=== PATIENT | male | born 1950 | race Caucasian/White ===

== ENCOUNTER → 2019-06-04 10:35 | Outpatient (BNVA) | payer MEDICARE, OTHER, SELFPAY | PROVIDERS: Family Provider Family Medicine; PCP Family Medicine; Visit Provider Otolaryngology | DX: C32.9 Malignant neoplasm of larynx, unspecified (principal); H65.03 Acute serous otitis media, bilateral | CPT/HCPCS: 99205; 99214 ==

== ENCOUNTER 2019-07-19 09:36 | Inpatient (IN) | payer MEDICARE, OTHER, SELFPAY ==
[2019-07-19] VITALS (8 sets, daily range): BP systolic 109–162; BP diastolic 68–98; PULSE 70–104; RESP 16–19; TEMP 36.8–37.1; O2SAT 89–98; BMI 21.2
--- NOTE | 2019-07-19 09:50 | ED_ITS ---
Documented by User: TYE Cohen 07/19/19 13:08 HPI - SOB/Dyspnea General: Chief Complaint: Upper Respiratory Infection Stated Complaint: SOB Time Seen by Provider: 07/19/19 09:48 Source: patient and family () Mode of arrival: ambulatory Limitations: language barrier (pt is non-verbal given hx of laryngeal resection ) History of Present Illness: HPI Narrative: Patient is a 69-year-old male who presents to ED today along with his who provides all of patient's history here for complaints of increased mucus production through his post laryngectomy stoma, shortness of breath, decreased appetite, and a 5 pound weight loss over the past two weeks. They were initially seen by Dr. Layton (PCP is [place] but he is out of office) and referred here for evaluation. They saw Yash recently and was placed on Levaquin-has one more dose of this left but states he is not improving. Patient states he feels short of breath with a mild pain in the left side of his chest with radiation into his left back. states he has trouble coughing up the mucus. Patient is only able to tolerate 3 ensures daily for nutrition. She states normally he would be able to consume a fairly normal diet. He has not been running fevers. No recent travel. states she did have a mild cough with no other symptoms recently. Patient has no other medical conditions apart from the laryngeal cancer. Associated symptoms: Reports chest congestion and chest pain; Deny abdominal pain, fever(s), hemoptysis, lightheadedness, nausea, orthopnea, palpitations, syncope or vomiting Review of Systems General: Reports: 10 or more systems reviewed and unremarkable except in HPI and below Const: Reports: change in appetite and change in weight; Denies: fever, chills, body aches, fatigue or malaise Eyes: Denies: change in vision, blurry vision, photophobia, floaters or seeing flashes ENMT: Denies: throat pain, uvular edema, painful swallowing, nasal discharge, nasal congestion or facial/sinus pain Card: Reports: chest pain and shortness of breath on exertion; Denies: palpitations, irregular heart rhythm, edema, lightheadedness, syncope, pre-syncope or shortness of breath when lying down Resp: Reports: shortness of breath, productive cough and chest congestion; Denies: coughing up blood GI: Denies: abdominal pain, nausea, vomiting, diarrhea, change in stool character, blood in stool, black tarry stool, white/light colored stool or fatty stool : Denies: flank pain, difficulty urinating, painful urination, urinary frequency, urinary urgency or urinary hesitancy Musc: Reports: back pain; Denies: neck pain Skin/Breast: Denies: rash Neuro: Denies: headache, numbness in extremities, weakness in extremities or changes in sensation PFSH ED PFSH: Medical History (Updated 07/19/19 @ 14:16 by Jean Peres MD) Acute serous otitis media Laryngeal cancer Surgical History (Updated 07/19/19 @ 14:09 by Jean Peres MD) History of laryngectomy Family History Other CAD (coronary artery disease) Social History (Updated 07/19/19 @ 14:09 by Jean Peres MD) Smoking and tobacco status: never smoked Alcohol intake: former Substance/Drug Use: never Physical Exam Const: COMMON NORMALS: no apparent distress, average body habitus, oriented x3, no limitations, healthy appearing, alert and well nourished HENMT: COMMON NORMALS: normocephalic, head/scalp atraumatic, hearing grossly normal bilaterally, external ears normal, EAC's normal, TM's normal bilaterally, external nose normal, nasal mucous membranes and turbinates normal, moist oral mucous membranes, oropharynx normal and gingiva normal HEAD & SCALP: normal to inspection, normocephalic and atraumatic NOSE: external nose normal and nasal mucous membranes and turbinates normal EXTERNAL EAR: Yes external ears normal EXTERNAL AUDITORY CANAL: EAC's normal TYMPANIC MEMBRANE: TM's normal bilaterally THROAT: no uvular edema Eye: COMMON NORMALS: PERRL, EOMs intact bilaterally and conjunctivae normal CONJUNCTIVA: Yes conjunctivae normal PUPIL: Yes PERRL Neck/C-Spine: OTHER: post laryngectomy stoma; has some mild erythema to infer ior portion-thick yellow phlegm coughed up from this Lymph: LYMPHATIC: no lymphadenopathy noted Resp: COMMON NORMALS: normal respiratory effort AUSCULTATION: crackles (LLL) Cardio: COMMON NORMALS: regular rhythm RATE: tachycardic RHYTHM: regular rhythm GI: COMMON NORMALS: normal to inspection, nondistended, normoactive bowel sounds, soft to palpation, non-tender, no hepatosplenomegaly and no masses PALPATION: Yes soft and Yes no hepatosplenomegaly : COMMON NORMALS: Yes no CVA tenderness BLADDER/KIDNEY EXAM: Yes no CVA tenderness Back/Pelvis: COMMON NORMALS: no CVA tenderness OTHER: reports mild TTP throughout L side of back; no midline tenderness Extremity: COMMON NORMALS: normal to inspection Neuro: COMMON NORMALS: oriented x3 SENSORIUM/ORIENTATION: Yes alert Skin: COMMON NORMALS: no rashes or lesions noted GENERAL SKIN EXAM: no rashes or lesions noted Course Vital Signs: Vital signs: Vital Signs Temperature 98.8 F 07/19/19 16:00 Pulse Rate 76 07/19/19 16:00 Respiratory Rate 18 07/19/19 16:00 Blood Pressure 126/82 07/19/19 16:00 Pulse Oximetry 95 07/19/19 16:00 MDM - SOB/Dyspnea MDM Narrative: Medical decision making narrative: Dr. Kerns will also evaluate and speak to hospitalist. He requested dose of Zosyn. Will go ahead and place pt on COVID-19 precautions and test based on CXR apperance. Lab Data: Labs: Lab Results 07/19/19 07/19/19 07/19/19 Range/Units 10:20 10:20 10:20 WBC 10.8 H (4.0-10.0) 10^3/ uL RBC 4.46 (4.1-5.3) 10^6/u L Hgb 12.0 (11.7-16.6) g/dL Hct 41.4 L (42.0-52.0) % MCV 92.8 (80-94) fL MCH 26.9 L (28.0-34.0) pg MCHC 29.0 L (30.0-36.0) g/dL RDW 15.8 H (12.1-15.1) % Plt Count 309 (130-400) 10^3/c mm MPV 9.3 (7.4-10.4) fL Neut % (Auto) 81.7 % Lymph % (Auto) 10.0 % [place] % (Auto) 5.7 % Eos % (Auto) 1.7 % Baso % (Auto) 0.2 % Neut # (Auto) 8.8 H (1.8-7.7) 10^3/u L Lymph # (Auto) 1.1 (0.8-4.8) 10^3/u L [place] # (Auto) 0.6 (0.2-0.9) 10^3/u L Eos # (Auto) 0.2 (0.0-0.8) 10^3/u L Baso # (Auto) 0.0 (0.0-0.1) 10^3/u L Nucleated RBC % (a uto) 0 % Nucleated RBCs # 0.0 /100WBC Sodium 138 (136-145) mmol/L Potassium 3.9 (3.5-5.1) mmol/L Chloride 99 (98-107) mmol/L Carbon Dioxide 23 (22-29) mmol/L Anion Gap 19.9 H (5-19) BUN 10 (8-23) mg/dL Creatinine 1.0 (0.7-1.2) mg/dL GFR Calculation 74.1 L (90-130) mL/min Glucose 111 (65-115) mg/dL Calculated Osmolal ity 283 L (285-295) mOsm/k g Lactate 2.4 H (0.5-2.2) mmol/L Calcium 10.5 (8.5-10.5) mg/dL Total Bilirubin 0.3 (0.15-1.2) mg/dL AST 17 (0-40) U/L ALT 9 (0-41) U/L Alkaline Phosphata se 125 (40-130) IU/L Total Protein 7.6 (6.6-8.7) g/dL Albumin 3.7 (3.5-5.2) g/dL Globulin 3.9 (1.3-4.6) g/dL Urine Color (Yellow) Urine Appearance (CLEAR) Urine pH (5-7) Ur Specific Gravit y (1.005-1.030) Urine Protein (Negative) Urine Glucose (UA) (Normal) Urine Ketones (Negative) Urine Blood (Negative) Urine Nitrate (Negative) Urine Bilirubin (NEGATIVE) Urine Urobilinogen (Negative) mg/dL Ur Leukocyte Caroline ase (Negative) Urine RBC (0-2) /hpf Urine WBC (0-5) /hpf Ur Squamous Epith Cells (0-5) Amorphous Sediment Urine Bacteria (NONE) Coarse Granular Ca sts /lpf 07/19/19 Range/Units 12:01 WBC (4.0-10.0) 10^3/ uL RBC (4.1-5.3) 10^6/u L Hgb (11.7-16.6) g/dL Hct (42.0-52.0) % MCV (80-94) fL MCH (28.0-34.0) pg MCHC (30.0-36.0) g/dL RDW (12.1-15.1) % Plt Count (130-400) 10^3/c mm MPV (7.4-10.4) fL Neut % (Auto) % Lymph % (Auto) % [place] % (Auto) % Eos % (Auto) % Baso % (Auto) % Neut # (Auto) (1.8-7.7) 10^3/u L Lymph # (Auto) (0.8-4.8) 10^3/u L [place] # (Auto) (0.2-0.9) 10^3/u L Eos # (Auto) (0.0-0.8) 10^3/u L Baso # (Auto) (0.0-0.1) 10^3/u L Nucleated RBC % (a uto) % Nucleated RBCs # /100WBC Sodium (136-145) mmol/L Potassium (3.5-5.1) mmol/L Chloride (98-107) mmol/L Carbon Dioxide (22-29) mmol/L Anion Gap (5-19) BUN (8-23) mg/dL Creatinine (0.7-1.2) mg/dL GFR Calculation (90-130) mL/min Glucose (65-115) mg/dL Calculated Osmolal ity (285-295) mOsm/k g Lactate (0.5-2.2) mmol/L Calcium (8.5-10.5) mg/dL Total Bilirubin (0.15-1.2) mg/dL AST (0-40) U/L ALT (0-41) U/L Alkaline Phosphata se (40-130) IU/L Total Protein (6.6-8.7) g/dL Albumin (3.5-5.2) g/dL Globulin (1.3-4.6) g/dL Urine Color Yellow (Yellow) Urine Appearance Cloudy (CLEAR) Urine pH 7 (5-7) Ur Specific Gravit y 1.010 (1.005-1.030) Urine Protein Neg (Negative) Urine Glucose (UA) Norm (Normal) Urine Ketones Negative (Negative) Urine Blood Neg (Negative) Urine Nitrate Negative (Negative) Urine Bilirubin Neg (NEGATIVE) Urine Urobilinogen Norm (Negative) mg/dL Ur Leukocyte Caroline ase Negative (Negative) Urine RBC Rare (0-2) /hpf Urine WBC 0-4 H (0-5) /hpf Ur Squamous Epith Cells 0-4 H (0-5) Amorphous Sediment 2+ Urine Bacteria Trace (NONE) Coarse Granular Ca sts 5-10 H /lpf Imaging Data^: CXR: Radiologist's impression: [place] [address] XRay Report Signed Patient: Justin Crenshaw Unit #: [id number] : [id number] Age/Sex: 69 / M ADM Date: 07/19/19 Loc: ER Room/Bed: Attending Dr: Ordering Provider/Ordering MD: Yu Hightower Date of Service: 07/19/19 Procedure(s): XR chest 1V portable [id number] Accession Number(s): [id number] Report Number: [id number] WS: [id number] PORTABLE CHEST HISTORY: cough/congestion COMPARISON: 08/07/2018 New interstitial opacification at the lung apices, LEFT greater than RIGHT. Additional interstitial thickening in the central LEFT lung. No pleural effusion or pneumothorax. Cardiac size: Normal. Mediastinum/Aorta: Normal mediastinum. No osseous abnormality seen. XR/XR chest 1V portable [id number] IMPRESSION: New, multilobar interstitial opacifications. Likely pneumonia. Dictated By: Ella Dave DO Signed By: Ella Dave DO Signed Date/Time: 07/19/19 1116 DD/ 1115 Discharge Plan Discharge Patient Disposition: Admitted As Inpatient Admit Provider: Jean Peres Clinical Impression: Pneumonia Qualifiers: Pneumonia type: due to unspecified organism Laterality: bilateral Lung location: unspecified part of lung Qualified Code(s): J18.9 - Pneumonia, unspecified organism Condition: Stable Referrals: Henry Balderas MD [Primary Care Provider] - Discharge Date/Time: 07/19/19 15:50 Sign Out Sign Out Data: Patient Sign Out occurred on 07/19/19 at 11:47. Patient's care was discussed, and care was transferred from to Maggy Kerns. Coding Level of Care Code ED Anesthesiologists' Assistant for Chg Fwd Exam Comprehensive Documented by User: Maggy Kerns 07/19/19 17:17 HPI - SOB/Dyspnea General: Chief Complaint: Upper Respiratory Infection Stated Complaint: SOB Time Seen by Provider: 07/19/19 09:48 PFSH ED PFSH: Medical History (Updated 07/19/19 @ 14:16 by Jean Peres MD) Acute serous otitis media Laryngeal cancer Surgical History (Updated 07/19/19 @ 14:09 by Jean Peres MD) History of laryngectomy Family History Other CAD (coronary artery disease) Social History (Updated 07/19/19 @ 14:09 by Jean Peres MD) Smoking and tobacco status: never smoked Alcohol intake: former Substance/Drug Use: never Course Vital Signs: Vital signs: Vital Signs Temperature 98.8 F 07/19/19 16:00 Pulse Rate 76 07/19/19 16:00 Respiratory Rate 18 07/19/19 16:00 Blood Pressure 126/82 07/19/19 16:00 Pulse Oximetry 95 07/19/19 16:00 MDM - SOB/Dyspnea MDM Narrative: Medical decision making narrative: Care assumed by me, Dr. Kerns from TYE Cohen. Please see her note and her assessment as I agree with her history and physical exam and assessment. I reviewed the case in full with Dr. Peres, he is agreeable to admission. Currently the patient is in no distress. He is hypoxic with a failed outpatient treatment of pneumonia. COVID-19 testing is pending. Patient be placed on appropriate precautions. Lab Data: Labs: Lab Results 07/19/19 07/19/19 07/19/19 Range/Units 10:20 10:20 10:20 WBC 10.8 H (4.0-10.0) 10^3/ uL RBC 4.46 (4.1-5.3) 10^6/u L Hgb 12.0 (11.7-16.6) g/dL Hct 41.4 L (42.0-52.0) % MCV 92.8 (80-94) fL MCH 26.9 L (28.0-34.0) pg MCHC 29.0 L (30.0-36.0) g/dL RDW 15.8 H (12.1-15.1) % Plt Count 309 (130-400) 10^3/c mm MPV 9.3 (7.4-10.4) fL Neut % (Auto) 81.7 % Lymph % (Auto) 10.0 % [place] % (Auto) 5.7 % Eos % (Auto) 1.7 % Baso % (Auto) 0.2 % Neut # (Auto) 8.8 H (1.8-7.7) 10^3/u L Lymph # (Auto) 1.1 (0.8-4.8) 10^3/u L [place] # (Auto) 0.6 (0.2-0.9) 10^3/u L Eos # (Auto) 0.2 (0.0-0.8) 10^3/u L Baso # (Auto) 0.0 (0.0-0.1) 10^3/u L Nucleated RBC % (a uto) 0 % Nucleated RBCs # 0.0 /100WBC Sodium 138 (136-145) mmol/L Potassium 3.9 (3.5-5.1) mmol/L Chloride 99 (98-107) mmol/L Carbon Dioxide 23 (22-29) mmol/L Anion Gap 19.9 H (5-19) BUN 10 (8-23) mg/dL Creatinine 1.0 (0.7-1.2) mg/dL GFR Calculation 74.1 L (90-130) mL/min Glucose 111 (65-115) mg/dL Calculated Osmolal ity 283 L (285-295) mOsm/k g Lactate 2.4 H (0.5-2.2) mmol/L Calcium 10.5 (8.5-10.5) mg/dL Total Bilirubin 0.3 (0.15-1.2) mg/dL AST 17 (0-40) U/L ALT 9 (0-41) U/L Alkaline Phosphata se 125 (40-130) IU/L Total Protein 7.6 (6.6-8.7) g/dL Albumin 3.7 (3.5-5.2) g/dL Globulin 3.9 (1.3-4.6) g/dL Urine Color (Yellow) Urine Appearance (CLEAR) Urine pH (5-7) Ur Specific Gravit y (1.005-1.030) Urine Protein (Negative) Urine Glucose (UA) (Normal) Urine Ketones (Negative) Urine Blood (Negative) Urine Nitrate (Negative) Urine Bilirubin (NEGATIVE) Urine Urobilinogen (Negative) mg/dL Ur Leukocyte Caroline ase (Negative) Urine RBC (0-2) /hpf Urine WBC (0-5) /hpf Ur Squamous Epith Cells (0-5) Amorphous Sediment Urine Bacteria (NONE) Coarse Granular Ca sts /lpf 07/19/19 Range/Units 12:01 WBC (4.0-10.0) 10^3/ uL RBC (4.1-5.3) 10^6/u L Hgb (11.7-16.6) g/dL Hct (42.0-52.0) % MCV (80-94) fL MCH (28.0-34.0) pg MCHC (30.0-36.0) g/dL RDW (12.1-15.1) % Plt Count (130-400) 10^3/c mm MPV (7.4-10.4) fL Neut % (Auto) % Lymph % (Auto) % [place] % (Auto) % Eos % (Auto) % Baso % (Auto) % Neut # (Auto) (1.8-7.7) 10^3/u L Lymph # (Auto) (0.8-4.8) 10^3/u L [place] # (Auto) (0.2-0.9) 10^3/u L Eos # (Auto) (0.0-0.8) 10^3/u L Baso # (Auto) (0.0-0.1) 10^3/u L Nucleated RBC % (a uto) % Nucleated RBCs # /100WBC Sodium (136-145) mmol/L Potassium (3.5-5.1) mmol/L Chloride (98-107) mmol/L Carbon Dioxide (22-29) mmol/L Anion Gap (5-19) BUN (8-23) mg/dL Creatinine (0.7-1.2) mg/dL GFR Calculation (90-130) mL/min Glucose (65-115) mg/dL Calculated Osmolal ity (285-295) mOsm/k g Lactate (0.5-2.2) mmol/L Calcium (8.5-10.5) mg/dL Total Bilirubin (0.15-1.2) mg/dL AST (0-40) U/L ALT (0-41) U/L Alkaline Phosphata se (40-130) IU/L Total Protein (6.6-8.7) g/dL Albumin (3.5-5.2) g/dL Globulin (1.3-4.6) g/dL Urine Color Yellow (Yellow) Urine Appearance Cloudy (CLEAR) Urine pH 7 (5-7) Ur Specific Gravit y 1.010 (1.005-1.030) Urine Protein Neg (Negative) Urine Glucose (UA) Norm (Normal) Urine Ketones Negative (Negative) Urine Blood Neg (Negative) Urine Nitrate Negative (Negative) Urine Bilirubin Neg (NEGATIVE) Urine Urobilinogen Norm (Negative) mg/dL Ur Leukocyte Caroline ase Negative (Negative) Urine RBC Rare (0-2) /hpf Urine WBC 0-4 H (0-5) /hpf Ur Squamous Epith Cells 0-4 H (0-5) Amorphous Sediment 2+ Urine Bacteria Trace (NONE) Coarse Granular Ca sts 5-10 H /lpf Discharge Plan Discharge Patient Disposition: Admitted As Inpatient Admit Provider: Jean Peres Clinical Impression: Pneumonia Qualifiers: Pneumonia type: due to unspecified organism Laterality: bilateral Lung location: unspecified part of lung Qualified Code(s): J18.9 - Pneumonia, unspecified organism Condition: Stable Referrals: Henry Balderas MD [Primary Care Provider] - Discharge Date/Time: 07/19/19 15:50 Sign Out Sign Out Data: Patient Sign Out occurred on 07/19/19 at 11:47. Patient's care was discussed, and care was transferred from to Maggy Kerns. Coding Level of Care Code ED Anesthesiologists' Assistant for Chg Fwd Exam Comprehensive
--- NOTE | 2019-07-19 10:04 | ECG_ITS ---
Measurements Intervals [place] Rate: 106 P: 77 MD: 149 QRS: 54 QRSD: 82 T: 72 QT: 325 QTc: 432 SINUS TACHYCARDIA No previous ECG available for comparison Electronically Signed On 07-19-2019 18:06:25 CDT by Shabana Vigil M.D. [email or web address]
--- NOTE | 2019-07-19 10:04 | XR_ITS ---
WS: [id number] PORTABLE CHEST HISTORY: cough/congestion COMPARISON: 08/07/2018 New interstitial opacification at the lung apices, LEFT greater than RIGHT. Additional interstitial t hickening in the central LEFT lung. No pleural effusion or pneumothorax. Cardiac size: Normal. Mediastinum/Aorta: Normal mediastinum. No osseous abnormality seen. XR/XR chest 1V portable [id number] IMPRESSION: New, multilobar interstitial opacifications. Likely pneumonia.
[2019-07-19 10:29] LABS: Basophils % 0.2 %; Eosinophils # 0.2 10^3/uL (0.0-0.8); Eosinophils % 1.7 %; Hematocrit 41.4 % (42.0-52.0); Lymphocytes # 1.1 10^3/uL (0.8-4.8); Mean Corpuscular Hemoglobin 26.9 pg (28.0-34.0); Mean Corpuscular Volume 92.8 fL (80-94); Mean Platelet Volume 9.3 fL (7.4-10.4); Monocytes # 0.6 10^3/uL (0.2-0.9); Monocytes % 5.7 %; Neutrophils # 8.8 10^3/uL (1.8-7.7); Neutrophils % 81.7 %; Nucleated Red Blood Cells % 0 %; Platelet Count 309 10^3/cmm (130-400); Red Blood Count 4.46 10^6/uL (4.1-5.3); Red Cell Distribution Width 15.8 % (12.1-15.1); White Blood Count 10.8 10^3/uL (4.0-10.0)
[2019-07-19 10:48] LABS: Lactate (Lactic Acid level) 2.4 mmol/L (0.5-2.2)
[2019-07-19 10:49] LABS: Alanine Aminotransferase 9 U/L (0-41); Albumin Level 3.7 g/dL (3.5-5.2); Alkaline Phosphatase 125 IU/L (40-130); Anion Gap 19.9 (5-19); Aspartate Amino Transferase 17 U/L (0-40); Blood Urea Nitrogen 10 mg/dL (8-23); Calcium 10.5 mg/dL (8.5-10.5); Carbon Dioxide 23 mmol/L (22-29); Chloride 99 mmol/L (98-107); Globulin 3.9 g/dL (1.3-4.6); Glomerular Filtration Rate 74.1 mL/min (90-130); Glucose 111 mg/dL (65-115); Osmolality Calculated 283 mOsm/kg (285-295); Potassium 3.9 mmol/L (3.5-5.1); Sodium 138 mmol/L (136-145); Total Bilirubin 0.3 mg/dL (0.15-1.2); Total Protein 7.6 g/dL (6.6-8.7)
[2019-07-19] MEDS: sodium chloride 0.9% 1,000 ML 999 ML IV (12:14)
[2019-07-19] MEDS: piperacillin-tazobactam 3.375 GM in sodium chloride 0.9% (plus) 50 ML IV ×2 (12:14→20:59)
[2019-07-19 12:38] LABS: Bilirubin Urine Neg (NEGATIVE); Blood Urine Neg (Negative); Glucose Urine UA Norm (Normal); Ketones Urine Negative (Negative); Leukocyte Esterase Urine Negative (Negative); Nitrate Urine Negative (Negative); Protein Urine Neg (Negative); Urine Appearance Cloudy (CLEAR); Urine Color Yellow (Yellow); Urobilinogen Urine Norm (Negative); pH Urine 7 (5-7)
[2019-07-19 12:39] LABS: Add Urine Microscopic? YES
[2019-07-19 12:47] LABS: RBC Urine RARE /hpf (0-2); Squamous Epithelial Cell Urine 0-4 (0-5); WBC Urine 0-4 /hpf (0-5)
[2019-07-19 12:49] LABS: Add Urine Culture? No; Amorphous Sediment Urine 2+; Bacteria Urine TRACE
--- NOTE | 2019-07-19 12:59 | PC.NURSE ---
hospitalist in room with pt and pt's spouse at this time (shira)
--- NOTE | 2019-07-19 13:33 | PM.HP ---
Providers/Chief Complaint Primary Care Provider: Henry Balderas MD Chief Complaint: SOB History of Present Illness Justin Crenshaw is a 69 year old male who presents with at least 2 weeks of illness. He has been coughing up some greenish sputum. is concerned his vocal cord prosthesis inserted between his cervical area is perhaps leaking. She reports this is due to be changed and is associated with aspiration with feeding when it does leak. She reports she has noticed that he is coughed some with drinking. There have been no fevers at home. He has had some shortness of breath. He has had decreased p.o. intake and lost 5 pounds in the last several weeks. He reports he is coughed so hard on some occasions that his chest hurt. No vomiting or diarrhea. Review of Systems General: Reports: 10 or more systems reviewed and unremarkable except in HPI and below Const: Denies: fever or chills Eyes: Denies: change in vision ENMT: Denies: throat pain Card: Reports: chest pain (Some chest pain with coughing) Resp: Reports: shortness of breath and productive cough GI: Denies: abdominal pain : Denies: flank pain Musc: Denies: neck pain Skin/Breast: Denies: rash Neuro: Denies: headache Psych: Denies: anxiety or depression Endo: Denies: excessive urination Damian/Lymph: Denies: easy bruising All/Imm: Denies: hives Medications/Allergies Allergies Allergy/AdvReac Type Severity Reaction Status Date / Time tramadol Allergy anxious Verified 06/04/19 11:35 PFSH Acute PFSH: Medical History (Updated 07/19/19 @ 14:16 by Jean Peres MD) Acute serous otitis media Laryngeal cancer Surgical History (Updated 07/19/19 @ 14:09 by Jean Peres MD) History of laryngectomy Family History Other CAD (coronary artery disease) Social History (Updated 07/19/19 @ 14:09 by Jean Peres MD) Smoking and tobacco status: never smoked Alcohol intake: former Substance/Drug Use: never Vitals/I&O/Wt Last Vital Signs Pulse 73 07/19/19 12:40 Resp 18 07/19/19 09:49 BP 122/83 07/19/19 12:40 Pulse Ox 98 07/19/19 12:40 Weight last 48 hrs Weight 61.689 kg Physical Exam Narrative: EXAM NARRATIVE: General exam is a nonverbal white male, clearly involved in history process and his clearly knows how to read lips. shows me some yellowish stringy sputum as a walk-in. HEENT: Pupils equally round. Oropharynx is clear. Neck demonstrates what appears to be a laryngo-stome with a tracheoesophageal puncture. He was receiving a nebulized treatment through this as I walk in the room. Cardiovascular regular rate and rhythm without murmur Lungs are clear. No wheezing or crackles are heard. Abdomen is soft with positive bowel sounds. No obvious organomegaly was deferred Extremities no cyanosis clubbing or edema, cap refill brisk Skin without rash Neuro no focal deficits Data : 07/19/19 10:20 07/19/19 10:20 Other Labs: Lactic acid level was 2.4 Urinalysis is essentially negative Influenza swabs are negative for a and B Covid 19 testing has been sent Chest x-ray per my read demonstrates some interstitial changes left upper lobe. Cardiac silhouette appears normal. EKG was also performed which demonstrates normal sinus rhythm, normal axis. He is slightly tachycardic at 106. There are no acute changes. Micro: Microbiology 07/19/19 11:03 Blood Culture - Preliminary Blood SPECIMEN COLLECTED 07/19/19 10:20 Blood Culture - Preliminary Blood SPECIMEN COLLECTED A&P Assessment and plan (1) Pneumonia: Patient requiring some oxygen in the emergency department. I believe they placed him on 3 L of oxygen through a trach shield. However, he has had some airway suctioning and this may have improved his condition significantly. He completed 9 days of Levaquin prior to coming to the hospital without improvement. Secondary to this, with visible infiltrate on x-ray will place him on vancomycin and Zosyn initially with plans on de-escalating this quickly. Sputum culture will be done. Nebs Hydration as he appears slightly dehydrated. Hopefully this will help with the viscosity of his secretions Secondary to his laryngeal stoma, tracheoesophageal puncture, pneumonia, previous ENT evaluation and concern for change of his laryngeal device ENT was consulted. Status: Acute Qualifiers: Laterality: bilateral Lung location: unspecified part of lung Pneumonia type: due to unspecified organism Qualified Code(s): J18.9 - Pneumonia, unspecified organism Code(s): J18.9 - Pneumonia, unspecified organism (2) Respiratory failure: Oxygen as needed. Taper off as possible. Status: Acute Code(s): J96.90 - Respiratory failure, unspecified, unspecified whether with hypoxia or hypercapnia Additional A&P Information History of laryngeal cancer DVT prophylaxis with Lovenox Full code Attestations Medical Necessity Statement*: Will need greater than 2 midnight stay for treatment of pneumonia with IV antibiotics. Time Spent in Patient Care: Greater than 35 minutes Coding Level of Care Code Acute Property Portfolio Officer for g Fwd Diagnoses Pneumonia J18.9 Laterality: bilateral Lung location: unspecified part of lung Pneumonia type: due to unspecified organism Respiratory failure J96.90
[2019-07-19 14:10] LABS: Influenza A by IFA Negative (Negative); Influenza B by IFA Negative (Negative)
[2019-07-19] MEDS: enoxaparin 40 mg/0.4 mL Syringe SUBCUT (18:50)
[2019-07-19] MEDS: vancomycin 1,000 MG in sodium chloride 0.9% 250 ML 250 MG IV (18:50)
[2019-07-19] MEDS: sodium chloride 0.9% 1,000 ML 75 ML IV (18:51)
[2019-07-20] VITALS (12 sets, daily range): BP systolic 103–124; BP diastolic 62–74; PULSE 68–77; RESP 17–24; TEMP 36.4–36.8; O2SAT 91–97
[2019-07-20] MEDS: piperacillin-tazobactam 3.375 GM in sodium chloride 0.9% (plus) 50 ML IV ×3 (03:42→21:56)
[2019-07-20 06:50] LABS: Basophils % 0.2 %; Eosinophils # 0.2 10^3/uL (0.0-0.8); Eosinophils % 2.7 %; Hematocrit 33.8 % (42.0-52.0); Hemoglobin 10.1 g/dL (11.7-16.6); Lymphocytes # 1.1 10^3/uL (0.8-4.8); Lymphocytes % 18.5 %; Mean Corpuscular HGB Conc 29.9 g/dL (30.0-36.0); Mean Corpuscular Hemoglobin 26.9 pg (28.0-34.0); Mean Corpuscular Volume 90.1 fL (80-94); Mean Platelet Volume 9.1 fL (7.4-10.4); Monocytes # 0.4 10^3/uL (0.2-0.9); Monocytes % 6.8 %; Neutrophils # 4.1 10^3/uL (1.8-7.7); Neutrophils % 70.4 %; Nucleated Red Blood Cells % 0 %; Platelet Count 263 10^3/cmm (130-400); Red Blood Count 3.75 10^6/uL (4.1-5.3); Red Cell Distribution Width 15.8 % (12.1-15.1); White Blood Count 5.9 10^3/uL (4.0-10.0)
[2019-07-20 07:08] LABS: Anion Gap 14.3 (5-19); Blood Urea Nitrogen 9 mg/dL (8-23); Calcium 9.7 mg/dL (8.5-10.5); Carbon Dioxide 25 mmol/L (22-29); Chloride 105 mmol/L (98-107); Glomerular Filtration Rate 74.1 mL/min (90-130); Glucose 101 mg/dL (65-115); Osmolality Calculated 286 mOsm/kg (285-295); Potassium 4.3 mmol/L (3.5-5.1); Sodium 140 mmol/L (136-145)
[2019-07-20] MEDS: sodium chloride 0.9% 1,000 ML 75 ML IV (09:02)
--- NOTE | 2019-07-20 10:21 | DCPLANNER ---
Per rounding; and km. are addressing the amount of 02 pt is using as he didn't use any before hospitalization.
[2019-07-20] MEDS: ipratropium-albuterol 3 mL Neb INHALATION ×3 (10:28→20:37)
--- NOTE | 2019-07-20 10:52 | P.PN_ITS ---
Subjective Subjective: Interval history: Justin reports he is doing okay. Not coughing up quite as much sputum. Medications: Reviewed: Yes Vitals/I&O/Wt Last Vital Signs Temp 97.8 F 07/20/19 07:45 Pulse 68 07/20/19 10:31 Resp 18 07/20/19 10:31 BP 120/68 07/20/19 07:45 Pulse Ox 95 07/20/19 10:31 07/19/19 07/20/19 07/20/19 22:59 06:59 14:59 Intake Total 450 / 450 50 / 500 1050 / 1050 Output Total 350 / 350 Balance 450 / 450 50 / 500 700 / 700 Weight last 48 hrs Weight 61.689 kg Physical Exam Narrative: EXAM NARRATIVE: General exam is no apparent distress Cardiovascular regular rate and rhythm without murmur Lungs demonstrate some bilateral fine crackles/wheezes Abdomen is soft with positive bowel sounds. No obvious organomegaly was deferred Extremities no cyanosis clubbing or edema, cap refill brisk Data : 07/20/19 06:41 07/20/19 06:41 Micro: Microbiology 07/19/19 10:20 Blood Culture - Preliminary Blood NEGATIVE TO DATE 07/19/19 10:05 Sputum Culture - Preliminary Sputum - Expectorated Sputum 07/19/19 11:03 Blood Culture - Preliminary Blood SPECIMEN COLLECTED A&P Assessment and plan (1) Pneumonia: Continue Zosyn and vancomycin Await sputum culture ENT consultation has been entered, regarding his laryngeal stoma and changing of his device there. Awaiting Covid 19 results so precautions still in place Wean oxygen as tolerated Secondary to wheezing I heard today nebulized treatments will be scheduled At 3 days of Zithromax for anti-inflammatory effect. He is already taken 9 days of Levaquin so doubt any atypical bacteria. At this point IV fluids can be discontinued Repeat chest x-ray tomorrow Status: Acute Qualifiers: Laterality: bilateral Lung location: unspecified part of lung Pneumonia type: due to unspecified organism Qualified Code(s): J18.9 - Pneumonia, unspecified organism Code(s): J18.9 - Pneumonia, unspecified organism (2) Respiratory failure: Oxygen as needed. Taper off as possible. 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
--- NOTE | 2019-07-20 11:01 | PM.CONSULT ---
Providers/Reason For Consult Consulting Physican/Specialty*: ENT Reason for Consult*: leaking TEP Attending Physician: Jean Peres MD Primary Care Provider: Henry Balderas MD History of Present Illness History of Present Illness Justin Crenshaw is a 69 year old male. He well-known to me. 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 He is also undergone a tracheoesophageal puncture for voice rehabilitation. I was asked to consult to determine if a leak may or may not be present and if his voice prosthesis may need to be changed. Review of Systems General: Reports: 10 or more systems reviewed and unremarkable except in HPI and below Const: Denies: fever or chills Eyes: Denies: change in vision ENMT: Denies: throat pain Card: Reports: chest pain (Some chest pain with coughing) Resp: Reports: shortness of breath and productive cough GI: Denies: abdominal pain : Denies: flank pain Musc: Denies: neck pain Skin/Breast: Denies: rash Neuro: Denies: headache Psych: Denies: anxiety or depression Endo: Denies: excessive urination Damian/Lymph: Denies: easy bruising All/Imm: Denies: hives Meds/Allergies Home Medications and Allergies Home Medications Medication Instructions Recorded Confirmed Type No Known Home Medications 06/04/19 07/19/19 History Allergies Allergy/AdvReac Type Severity Reaction Status Date / Time tramadol Allergy anxious Verified 06/04/19 11:35 Current Medications Current Medications Generic Name Dose Route Start Last Admin Trade Name Freq PRN Reason Stop Dose Admin Enoxaparin Sodium 40 mg 07/19/19 18:00 07/19/19 18:50 Lovenox SUBCUT 40 mg Q24H JOSE Administration Vancomycin HCl 1,000 mg/ 250 mls @ 250 mls/hr 07/19/19 19:00 07/19/19 21:18 Sodium Chloride IV Infused Q18H JOSE Infusion Protocol Piperacillin Sod/Tazobactam 50 mls @ 12.5 mls/hr 07/19/19 20:00 07/20/19 09:02 Sod 3.375 gm/ Sodium Chloride IV Infused Q8H JOSE Infusion Protocol PFSH Acute PFSH: Medical History Acute serous otitis media Laryngeal cancer Surgical History History of laryngectomy Family History Other CAD (coronary artery disease) Social History Smoking and tobacco status: never smoked Alcohol intake: former Substance/Drug Use: never Vitals/I&O/Wt Last Vital Signs Temp 97.8 F 07/20/19 07:45 Pulse 76 07/20/19 10:51 Resp 18 07/20/19 10:51 BP 120/68 07/20/19 07:45 Pulse Ox 91 07/20/19 10:51 07/19/19 07/20/19 07/20/19 22:59 06:59 14:59 Intake Total 450 / 450 50 / 500 1050 / 1050 Output Total 350 / 350 Balance 450 / 450 50 / 500 700 / 700 Weight last 48 hrs Weight 136 lb Physical Exam Narrative: EXAM NARRATIVE: Patient has normal postoperative changes from a total laryngectomy. He has a well-healed tracheal stoma with a tracheoesophageal puncture that is properly placed. A leak test was performed with the patient swallowed dyed liquid. No leak was noted. Data Micro: Micro: Microbiology 07/19/19 10:20 Blood Culture - Pr eliminary Blood NEGATIVE TO ALONSO E 07/19/19 10:05 Sputum Culture - P reliminary Sputum - Expector ated Sputum 07/19/19 11:03 Blood Culture - Pr eliminary Blood SPECIMEN [facility] A&P Assessment and plan (1) Laryngeal cancer: He is well-healed and there is no evidence of local regional disease. His tracheoesophageal puncture is in good order and not leaking at this time. I recommend follow-up once he is discharged from the hospital for a routine tracheoesophageal puncture prosthesis replacement. 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
[2019-07-20] MEDS: azithromycin 500 MG in sodium chloride 0.9% 250 ML 150 MG IV (11:11)
[2019-07-20] MEDS: vancomycin 1,000 MG in sodium chloride 0.9% 250 ML 150 MG IV (13:23)
[2019-07-20 14:12] LABS: Coronavirus Lab Test PTC SEE COMMENTS
[2019-07-20] MEDS: enoxaparin 40 mg/0.4 mL Syringe SUBCUT (18:14)
[2019-07-21] VITALS (8 sets, daily range): BP systolic 109–118; BP diastolic 65–82; PULSE 66–79; RESP 16–22; TEMP 36.6–37.1; O2SAT 92–97
[2019-07-21] MEDS: piperacillin-tazobactam 3.375 GM in sodium chloride 0.9% (plus) 50 ML IV ×3 (05:47→20:49)
--- NOTE | 2019-07-21 07:00 | XRR_ITS ---
PROCEDURE INFORMATION: Exam: XR Chest, 1 View Exam date and time: 07/20/2019 11:59 PM Age: 69 years old Clinical indication: Condition or disease; Lung condition and disease; Pneumonia; Prior surgery; Surgery date: 6+ months; Surgery type: Throat CA; Additional info: Follow-up pneumonia TECHNIQUE: Imaging protocol: XR of the chest Views: 1 view. COMPARISON: CR XR chest 1V portable [id number] 07/19/2019 10:33 AM FINDINGS: Heart size within normal limits. The right lung is clear. Mild left basilar atelectasis and/or pneumonia, increased from prior study. Mild interstitial opacities throughout both lungs, similar to prior study. This may represent pulmonary edema or interstitial component of pneumonia. No visible pneumothorax. Small left pleural effusion, new. XR/XR chest 1V portable [id number] IMPRESSION: 1. Mild left basilar atelectasis and/or pneumonia, increased from prior study. 2. Mild interstitial opacities throughout both lungs, similar to prior study. This may represent pulmonary edema or interstitial component of pneumonia. 3. Small left pleural effusion, new.
[2019-07-21 07:01] LABS: Vancomycin Trough 9.1 ug/mL (10-15)
--- NOTE | 2019-07-21 10:05 | USCV_ITS ---
Justin Crenshaw Age: 69 Gender: M : 1950 Exam Date: 07/21/2019 11:28 Ordering Phys: Jean Peres MD Technologist: Arleth Rodriguez [place] [facility] [place]: Dypsnea BP: 111 / 70 HR: 72 Rhythm: Sinus Technical Quality: Fair MEASUREMENTS (Male / Female) Normal Values 2D ECHO LV Diastolic Diameter PLAX 4.0 cm 4.2 - 5.9 / 3.9 - 5.3 cm LV Systolic Diameter PLAX 2.5 cm LV Chamber Size 3.3 cm IVS Diastolic Thickness 1.1 cm 0.6 - 1.0 / 0.6 - 0.9 cm IVS Systolic Thickness 1.2 cm LVPW Diastolic Thickness 0.8 cm 0.6 - 1.0 / 0.6 - 0.9 cm LVPW Systolic Thickness 1.1 cm RV Chamber Size 3.0 cm LVOT Diameter 2.0 cm LV Ejection Fraction 2D Teich 66.4 % LV Ejection Fraction MOD 2C 62.4 % LV Ejection Fraction 2C AL 65.1 % LA Diameter 2.7 cm LA Width 2.6 cm LA Height 5.5 cm RA Width 2.7 cm RA Height 5.0 cm Aorta at Sinotubular Diameter 2.9 cm M-MODE LV Diastolic Diameter MM 5.3 cm 4.2 - 5.9 / 3.9 - 5.3 cm LV Systolic Diameter MM 3.4 cm LV Ejection Fraction MM Teich 65.7 % IVS Diastolic Thickness MM 1.2 cm 0.6 - 1.0 / 0.6 - 0.9 cm IVS Systolic Thickness MM 1.2 cm LVPW Diastolic Thickness MM 1.1 cm 0.6 - 1.0 / 0.6 - 0.9 cm LVPW Systolic Thickness MM 1.3 cm RV Diastolic Diameter MM 1.6 cm Aortic Annulus Diameter 3.4 cm LA Ao Ratio MM 0.8 MV E Point Septal Separation 0.3 cm DOPPLER AV Peak Velocity 137.0 cm/s LVOT Peak Velocity 128.0 cm/s AV Area Cont Eq vti 2.7 cm squared AV Area Cont Eq pk 2.8 cm squared MV Area PHT 3.5 cm squared Mitral E to A Ratio 0.9 MV E' Velocity 10.0 cm/s Mitral E to MV E' Ratio 8.5 Mitral E to LV E' Lateral Ratio 8.3 Mitral E to LV E' Septal Ratio 8.7 TR Peak Velocity 299.0 cm/s TR Peak Gradient 35.7 mmHg TR Mean Velocity 246.1 cm/s TR Mean Gradient 25.3 mmHg TR Velocity Time Integral 91.3 cm TV Peak E Velocity 49.0 cm/s Right Atrial Pressure 3.0 mmHg Pulmonary Artery Systolic Pressu 38.8 mmHg PV Peak Velocity 77.0 cm/s RV Acceleration Time 0.1 s RV Ejection Time 0.3 s RV AcT/ET 0.3 FINDINGS Left Ventricle Normal left ventricular size, systolic function and wall thickness, with no regional wall motion abnormalities. Left ventricular ejection fraction is estimated at 65%. Normal diastolic function. Right Ventricle Normal right ventricular size and systolic function, RVSP 40 mmHg. Right Atrium Normal right atrial size. Right atrial pressure estimated at 3 mmHg. Left Atrium Normal left atrial size. Mitral Valve Structurally normal mitral valve. Trace mitral valve regurgitation. Aortic Valve Structurally normal trileaflet aortic valve. No aortic valve stenosis. No aortic valve regurgitation. Tricuspid Valve Structurally normal tricuspid valve. Trace tricuspid valve regurgitation. Pulmonic Valve Pulmonic valve not well visualized. Pericardium No pericardial effusion. Aorta Normal-sized aortic root. CONCLUSIONS 1. Normal left ventricular size, systolic function and wall thickness, with no regional wall motion abnormalities. Left ventricular ejection fraction is estimated at 65%. Normal diastolic function. 2. Normal right ventricular size and systolic function, RVSP 40 mmHg. 3. Right atrial pressure estimated at 3 mmHg. 4. No significant valvular abnormality. 5. Mild pulmonary hypertension with pulmonary artery pressure estimated at 40 mmHg. 6. No prior similar studies to compare. Shabana Vigil MD (Electronically Signed) Final Date: 21 July 2019 14:03 S
--- NOTE | 2019-07-21 11:08 | PM.PN ---
Subjective Subjective: Interval history: Justin reports he is feeling better. They are keeping his oxygen off. He is to continue to cough up sputum on occasion. Medications: Reviewed: Yes Vitals/I&O/Wt Last Vital Signs Temp 97.8 F 07/21/19 07:36 Pulse 68 07/21/19 09:02 Resp 18 07/21/19 09:02 BP 111/70 07/21/19 07:36 Pulse Ox 97 07/21/19 09:02 07/20/19 07/21/19 07/21/19 22:59 06:59 14:59 Intake Total / 1969 Balance 1419 50 1470 Physical Exam Narrative: EXAM NARRATIVE: General exam is no apparent distress Cardiovascular regular rate and rhythm without murmur Lungs demonstrate no wheezing. Few bibasilar crackles Abdomen is soft with positive bowel sounds. No obvious organomegaly was deferred Extremities no cyanosis clubbing or edema, cap refill brisk Data : 07/20/19 06:41 07/20/19 06:41 Micro: Microbiology 07/19/19 10:05 Sputum Culture - Preliminary Sputum - Expectorated Sputum 07/19/19 11:03 Blood Culture - Preliminary Blood NEGATIVE TO DATE 07/19/19 10:20 Blood Culture - Preliminary Blood NEGATIVE TO DATE A&P Assessment and plan (1) Pneumonia: Continue Zosyn and vancomycin. Zithromax was added for anti-inflammatory effect for 3 days Await sputum culture. Currently this is negative ENT consultation is appreciated Covid 19 testing was negative Weaning oxygen off Continue nebulized treatments Repeat chest x-ray reviewed. Continued bilateral interstitial infiltrates. Secondary to this we will check echocardiogram. No clinical evidence of fluid overload Status: Acute Qualifiers: Laterality: bilateral Lung location: unspecified part of lung Pneumonia type: due to unspecified organism Qualified Code(s): J18.9 - Pneumonia, unspecified organism Code(s): J18.9 - Pneumonia, unspecified organism (2) Respiratory failure: Oxygen as needed. Taper off as possible. Status: Acute Code(s): J96.90 - Respiratory failure, unspecified, unspecified whether with hypoxia or hypercapnia Additional A&P Information History of laryngeal cancer DVT prophylaxis with Lovenox Full code Attestations Medical Necessity Statement*: Needs continued hospitalization for IV antibiotics related to pneumonia. 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
[2019-07-21] MEDS: azithromycin 500 MG in sodium chloride 0.9% 250 ML 250 MG IV (13:43)
[2019-07-21] MEDS: sulfamethoxazole-trimeth DS 160-800 mg Tablet 1 TAB PO (18:35)
[2019-07-21] MEDS: enoxaparin 40 mg/0.4 mL Syringe SUBCUT (18:35)
[2019-07-22] VITALS: BP 113/71; PULSE 66; RESP 18; TEMP 36.7; O2SAT 91
[2019-07-22 04:00] VITALS: BP 131/79; PULSE 62; RESP 18; TEMP 36.7; O2SAT 91
--- NOTE | 2019-07-22 04:59 | PC.NURSE ---
Patient stated she has emptied patients urinal three (3) times, with output of 500 ml each time. Total output of 1500 ml.
[2019-07-22] MEDS: piperacillin-tazobactam 3.375 GM in sodium chloride 0.9% (plus) 50 ML IV (05:34)
[2019-07-22 06:02] LABS: Basophils % 0.3 %; Eosinophils # 0.2 10^3/uL (0.0-0.8); Eosinophils % 5.8 %; Hematocrit 33.6 % (42.0-52.0); Hemoglobin 10.2 g/dL (11.7-16.6); Lymphocytes # 0.8 10^3/uL (0.8-4.8); Lymphocytes % 20.9 %; Mean Corpuscular HGB Conc 30.4 g/dL (30.0-36.0); Mean Corpuscular Hemoglobin 27.6 pg (28.0-34.0); Mean Corpuscular Volume 90.8 fL (80-94); Mean Platelet Volume 8.9 fL (7.4-10.4); Monocytes # 0.3 10^3/uL (0.2-0.9); Monocytes % 7.5 %; Neutrophils # 2.6 10^3/uL (1.8-7.7); Nucleated Red Blood Cells % 0 %; Platelet Count 256 10^3/cmm (130-400); Red Cell Distribution Width 15.8 % (12.1-15.1)
[2019-07-22 06:24] LABS: Anion Gap 14.9 (5-19); Blood Urea Nitrogen 9 mg/dL (8-23); Calcium 9.5 mg/dL (8.5-10.5); Carbon Dioxide 26 mmol/L (22-29); Chloride 104 mmol/L (98-107); Glomerular Filtration Rate 66.4 mL/min (90-130); Glucose 92 mg/dL (65-115); Osmolality Calculated 288 mOsm/kg (285-295); Potassium 3.9 mmol/L (3.5-5.1); Sodium 141 mmol/L (136-145)
[2019-07-22 08:00] VITALS: BP 127/76; PULSE 70; RESP 18; TEMP 36.7; O2SAT 92
--- NOTE | 2019-07-22 08:21 | PC.SOCIAL ---
IM follow up explained to patient and . Copy given. NO questions
[2019-07-22 08:43] VITALS: PULSE 66; RESP 16; O2SAT 95
[2019-07-22] MEDS: sulfamethoxazole-trimeth DS 160-800 mg Tablet 1 TAB PO (09:09)
--- NOTE | 2019-07-22 10:04 | P.DS_ITS ---
Discharge Providers Date of Admission: 07/19/19 13:24 Date of Discharge: July 22, 2019 Attending Provider at Admission: Jean Peres MD Attending Provider at Discharge: Jean Peres MD Primary Care Provider: Henry Balderas MD Diagnoses at Discharge Discharge Diagnosis (1) Pneumonia: Status: Acute Problem details: Improved. White blood cell count decreased. No evidence of fever. On room air Qualifiers: Laterality: bilateral Lung location: unspecified part of lung Pneumonia type: due to unspecified organism Qualified Code(s): J18.9 - Pneumonia, unspecified organism (2) Respiratory failure: Status: Acute Problem details: Improved as above Reason for Visit Reason for Visit: Reason For Visit: SOB Hospital Course Hospital Course: Justin is a 69-year-old with history of laryngeal cancer with laryngostome who presented to the hospital with shortness of breath, cough productive of yellowish sputum. He was placed on broad-spectrum antibiotics. ENT was consulted in case change of his laryngostome device was needed. It was not. During his hospital stay his sputum production lessened, he did not have a ny fevers, white blood cell count decreased. On July 21 he was on room air, and it was thought he could transition home. He was able to ambulate around the room without shortness of breath. He will discharge on Augmentin and Bactrim for 7 days. Sputum culture was negative while he was in the hospital. Physical Exam Narrative: EXAM NARRATIVE: General exam no apparent distress Cardiovascular regular rate and rhythm without murmur Lungs a few scattered wheezes and rhonchi, with some clearing with coughing Abdomen is soft with positive bowel sounds Extremities no cyanosis clubbing or edema Discharge Data Data Completed and Pending: Completed Studies During Hospitalization Category Date Time Status XR chest 1V tiffanie ble [id number] Routine Exams 07/21/19 07:00 Completed XR chest 1V tiffanie ble [id number] Urgent Exams 07/19/19 10:04 Completed CV echo complete* [id number] Routine Ultrasound 07/21/19 10:05 Completed Pending at discharge Category Date Time Status Blood Culture Sta t Lab 07/19/19 11:03 Results Sputum Culture an d Gram Stain Routi ne Lab 07/19/19 17:41 Uncollected Vancomycin Trough Routine Lab 07/22/19 21:00 Ordered Labs from last 24 hours 07/22/19 07/22/19 05:43 05:43 WBC 4.0 RBC 3.70 L Hgb 10.2 L Hct 33.6 L MCV 90.8 MCH 27.6 L MCHC 30.4 RDW 15.8 H Plt Count 256 MPV 8.9 Neut % (Auto) 65.0 Lymph % (Auto) 20.9 Kimble % (Auto) 7.5 Eos % (Auto) 5.8 Baso % (Auto) 0.3 Neut # (Auto) 2.6 Lymph # (Auto) 0.8 Kimble # (Auto) 0.3 Eos # (Auto) 0.2 Baso # (Auto) 0.0 Nucleated RBC % (a uto) 0 Nucleated RBCs # 0.0 Sodium 141 Potassium 3.9 Chloride 104 Carbon Dioxide 26 Anion Gap 14.9 BUN 9 Creatinine 1.1 GFR Calculation 66.4 L Glucose 92 Calculated Osmolal ity 288 Calcium 9.5 Vitals: Last Vital Signs Temp 98.0 F 07/22/19 08:00 Pulse 66 07/22/19 08:43 Resp 16 07/22/19 08:43 BP 127/76 07/22/19 08:00 Pulse Ox 95 07/22/19 08:43 Discharge Plan Discharge Patient Disposition: Home, Self-Care Condition: Stable Prescriptions: New sulfamethoxazole-trimethoprim 800-160 mg Tablet 1 tab PO BID Qty: 14 RF: 0 amoxicillin-pot clavulanate [Augmentin] 875-125 mg tablet 1 tab PO BID Qty: 14 RF: 0 No Action No Known Home Medications RF: 0 Discharge Orders: Discharge Order (Routine); Ordered 07/22/19 Ordered By: Jean Peres Referrals: Henry Balderas MD [Primary Care Provider] - 4-7 days (Follow-up with primary care provider. 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
[2019-07-22 10:14] VITALS: PULSE 66; RESP 16; O2SAT 95
[2019-07-22 10:57] VITALS: PULSE 66; RESP 16; O2SAT 95
== END 2019-07-22 10:55 | disposition home or self-care (01) | DRG 193 ==
LOC: ER 12:20 → MEDSURG 14:27
PROVIDERS: Physician Assistant; Admitting Provider Internal Medicine; Emergency Provider Emergency Medicine; Family Provider Family Medicine; PCP Family Medicine; Visit Provider Internal Medicine
DX: J18.9 Pneumonia, unspecified organism (principal); J96.00 Acute respiratory failure, unspecified whether with hypoxia or hypercapnia; C32.9 Malignant neoplasm of larynx, unspecified; Z79.2 Long term (current) use of antibiotics
CPT/HCPCS: 12345; 36415; 71045; 80048; 80053; 80202; 81001; 83605; 85025; 87040; 87070; 87635; 87804; 93005; 93306; 94640; 94762; 96372; 99284; J0456; J1650; J2543; J3370; J7030; J7050

== ENCOUNTER 2019-10-08 07:55 | Outpatient (CLI) | payer MEDICARE, OTHER, SELFPAY ==
--- NOTE | 2019-10-08 08:08 | CT_ITS ---
WS: [id number] CT NECK TECHNIQUE: Contrast-enhanced CT of the neck with coronal and sagittal reformatted images. CLINICAL INFORMATION: CANCER COMPARISON: None. DLP: 1735.[address] scans at [facility] use at least one of these dose optimization techniques: automat ed exposure control; mA and/or kV adjustment per patient size (includes targeted exams where dose is matched to clinical indication); or iterative reconstruction. FINDINGS: Prior postoperative changes total laryngectomy with flap reconstruction. Tracheostomy in place. Palpa ble marker overlying the left neck. This overlies a suspected enhancing lesion along the inferior asp ect of the left submandibular gland. This is contiguous with the inferior aspect of the submandibular gland measuring 1.5 x 1.1 CM. Some of these may represent normal prominent submandibular gland. Comp arison with prior neck CTs or further evaluation with PET/CT would be helpful. Right submandibular gland is normal. Parotid glands are normal. No other abnormal mass or lesion. Nor mal parapharyngeal fat. Normal posterior nasopharynx. Left mastoid air cells are well aerated. Opacification of the right mastoid air cells. Paranasal sinu ses are well aerated. Calcified granuloma right upper lobe. 3 mm hazy groundglass nodule left upper l obe described on the chest CT. No cervical lymphadenopathy. No other abnormalities. CT/CT neck w con* [id number] IMPRESSION: 1. Prior postoperative changes total laryngectomy and flap reconstruction. 2. In the area of palpable concern, is a suspected nodule along the inferior l eft submandibular gland. This measures 1.1 x 1.5 cm. Some this may represent no rmal prominent normal submandibular gland. Comparison with prior neck CTs or fu rther evaluation with PET/CT would be helpful. 3. Salivary glands are otherwise normal. 4. Normal parapharyngeal fat. 5. No cervical lymphadenopathy. 6. Opacification right mastoid air cells.
--- NOTE | 2019-10-08 08:08 | CT_ITS ---
WS: [id number] CT CHEST TECHNIQUE: Contrast enhanced CT of the chest with coronal and sagittal reformatted images. CLINICAL INFORMATION: CANCER COMPARISON: None. DLP: 566.[address] scans at [facility] use at least one of these dose optimization techniques: automat ed exposure control; mA and/or kV adjustment per patient size (includes targeted exams where dose is matched to clinical indication); or iterative reconstruction. FINDINGS: Mild chronic emphysematous changes. No acute pulmonary infiltrates. Subsegmental atelectasis in the l sophia bases. A few calcified granulomas. Small hazy groundglass nodule in the left upper lobe measuring 3.3 mm. Normal caliber thoracic aorta. Calcified hilar nodes. No mediastinal or hilar lymphadenopathy. No axi llary lymphadenopathy. Adrenal glands are normal. Splenic granulomas. Cholelithiasis. Normal thoracic spine. CT/CT chest w con* [id number] IMPRESSION: 1. Small hazy groundglass nodule left upper lobe measuring 3.3 mm. Recommend 6 month follow-up. 2. Subsegmental atelectasis in the lung bases. 3. No mediastinal or hilar lymphadenopathy. 4. Cholelithiasis. This can be further evaluated with ultrasound.
[2019-10-08 08:39] LABS: Blood Urea Nitrogen 15 mg/dL (8-23); Glomerular Filtration Rate 66.4 mL/min (90-130)
[2019-10-08] MEDS: iohexol 300 mg/mL 100 mL Btl IV (08:59)
== END 2019-10-08 07:56 | disposition home or self-care (01) ==
LOC: RADWPI 08:01
PROVIDERS: PCP Family Medicine; Visit Provider Family Medicine
DX: C32.9 Malignant neoplasm of larynx, unspecified (principal); R91.1 Solitary pulmonary nodule; K80.20 Calculus of gallbladder without cholecystitis without obstruction
CPT/HCPCS: 70491; 71260; 82565; 84520; Q9967

== ENCOUNTER 2020-05-07 08:56 | Outpatient (CLI) | payer MEDICARE, OTHER, SELFPAY ==
--- NOTE | 2020-05-07 08:59 | CT_ITS ---
WS: [id number] CT NECK WITH CONTRAST HISTORY: Throat cancer, hypothyroidism. TECHNIQUE: Contiguous 5 mm axial images are performed through the neck with intravenous contrast. Sag ittal and coronal reformats are also submitted. All CT scans at [facility] use at least o ne of these dose optimization techniques: automated exposure control; mA and/or kV adjustment per pat ient size (includes targeted exams where dose is matched to clinical indication); or iterative recons truction. CONTRAST: CONTRAST: Omnipaque 300; 95 mL IV. DLP: 2758.26 mGycm COMPARISON: 10/08/2019 Patient is status post laryngectomy. Tracheostomy is again identified in good position. Extensive pos tsurgical sutures are noted along the anterior neck with prior flap reconstruction. There is abundant fat at the reconstruction site. No recurrent mass identified within this fat. No abnormality at the tongue base. No significant lymphadenopathy is identified. Parotid glands are symmetric bilaterally. No enhancing masses are identified. Thyroid tissue is not i dentified may be atrophied or removed surgically removed. Moderate spondylitic changes and disc space narrowing at C4-5. Visualized portions of the skull base demonstrate no abnormalities. Orbits and globes are within norm al limits. No soft tissue masses. Moderate mucoperiosteal thickening LEFT maxillary sinus. Lung apices are clear. CT/CT neck w con* [id number] IMPRESSION: 1. Status post laryngectomy with tracheostomy. 2. No recurrent mass or adenopathy appreciated. 3. Extensive postsurgical sutures along the anterior neck with flap reconstruc tion.
[2020-05-07] MEDS: iohexol 300 mg/mL 100 mL Btl IV (09:26)
== END 2020-05-07 08:57 | disposition home or self-care (01) ==
LOC: RADWPI 08:59
PROVIDERS: PCP Family Medicine; Visit Provider Family Medicine
DX: Z85.818 Personal history of malignant neoplasm of other sites of lip, oral cavity, and pharynx (principal)
CPT/HCPCS: 70491; Q9967

== ENCOUNTER 2020-12-03 07:46 | Outpatient (CLI) | payer MEDICARE, OTHER, SELFPAY ==
--- NOTE | 2020-12-03 08:05 | CT_ITS ---
WS: [id number] CT CHEST WITH INTRAVENOUS CONTRAST HISTORY: NEOPLASM MALIGNANT, BONE Ribs, chest PAINS, THROAT CA TECHNIQUE: Contiguous 5 mm axial imaging performed on the thorax. Coronal and sagittal reformats are submitted. All CT scans at [facility] use at least one of these dose optimization techniq ues: automated exposure control; mA and/or kV adjustment per patient size (includes targeted exams wh ere dose is matched to clinical indication); or iterative reconstruction. CONTRAST: Omnipaque 300; 75 mL IV. DLP: 575.14 mGycm COMPARISON: 10/08/2019 Lungs and central airway: Mild pulmonary hyperexpansion. Subsegmental linear atelectasis at the lung bases. New 5 mm lobulated nodule LEFT lower lobe, image 39 of series 3. Benign granuloma RIGHT upper lobe. Pleura: Normal. No pleural effusion. Heart and pericardium: Normal size heart with no pericardial effusion. Mediastinum and hannah: 7 mm LEFT hilar lymph node was present on the prior study. There are a few smal ler mediastinal and hilar lymph nodes which have not significantly changed. Vessels: Very mild atherosclerosis aorta with no aneurysm. Normal size pulmonary artery. Chest wall and lower neck: Postsurgical changes are noted in the anterior neck from prior surgery. Th ere is a tracheostomy present. No nodules are identified. Marker is placed along the anterior LEFT ch est wall at the site of the palpable abnormality. No abnormality is identified. There is no soft tiss ue mass. The underlying rib and cartilage are negative. No destructive lesions are identified. Upper abdomen: Moderate size hiatal hernia. Subcentimeter lymph nodes adjacent to the distal esophagu s are stable. Mild hepatic steatosis. Cholelithiasis without acute cholecystitis. Splenic granulomata . No adrenal mass. Osseous structures: Increase in thoracic kyphosis. No osteoblastic or osteolytic bone disease. CT/CT chest w con* [id number] IMPRESSION: 1. No mass or abnormality is noted along the anterior LEFT chest wall at the s ite of the palpable abnormality. 2. New lobulated 5 mm LEFT lower lobe nodule. Very nonspecific at this time. N ew since 10/08/2019. Recommend follow-up chest CT in 3 months to exclude early m etastatic lesion. 3. No new or increasing mediastinal or hilar lymph nodes. 4. Cholelithiasis without acute cholecystitis. 5. Moderate hiatal hernia. 6. Status post tracheostomy.
--- NOTE | 2020-12-03 08:05 | CT_ITS ---
WS: [id number] CT NECK WITH CONTRAST HISTORY: THROAT CANCER, TECHNIQUE: Contiguous 5 mm axial images are performed through the neck with intravenous contrast. Sag ittal and coronal reformats are also submitted. All CT scans at [facility] use at least o ne of these dose optimization techniques: automated exposure control; mA and/or kV adjustment per pat ient size (includes targeted exams where dose is matched to clinical indication); or iterative recons truction. CONTRAST: CONTRAST: Omnipaque 300; 75 mL IV. DLP: 711.94 mGycm COMPARISON: 05/07/2020 Status post laryngectomy with tracheostomy. Extensive postsurgical changes are present bilaterally th roughout the larynx. The soft tissues in the surgical clips remain stable. No recurrent mass is ident ified. No enhancing masses are identified at the tongue base of the post surgical neck. Torus tubarius and fossa of Rosenmuller and parapharyngeal fat are normal. No significant lymphadenopathy is identified. Parotid glands are normal. Submandibular glands are normal. Thyroid is been removed. There some very mild circumferential soft tissue thickening involving the trachea just below the leve l of the tracheotomy site. No enhancing mass. This finding was present on the prior study. Degenerative spondylitic changes most significant at C4-5. Mild anterior wedging of T2, T3 and T4. Visualized portions of the skull base demonstrate no abnormalities. Orbits and globes are within norm al limits. No soft tissue masses. Lobulated soft tissue within the maxillary sinuses from chronic sinus disease. No mass noted in the upper lung mike. CT/CT neck w con* [id number] IMPRESSION: 1. Status post laryngectomy and tracheostomy. No interval change or complicati on. 2. Extensive postsurgical changes of the larynx are stable. No recurrent mass or adenopathy.
[2020-12-03 08:33] LABS: Blood Urea Nitrogen 17 mg/dL (8-23); Glomerular Filtration Rate 59.9 mL/min (90-130)
[2020-12-03] MEDS: iohexol 300 mg/mL 100 mL Btl IV ×2 (08:47→08:48)
== END 2020-12-03 07:47 | disposition home or self-care (01) ==
PROVIDERS: PCP Family Medicine; Visit Provider Family Medicine
DX: C41.3 Malignant neoplasm of ribs, sternum and clavicle (principal); R07.9 Chest pain, unspecified; Z85.818 Personal history of malignant neoplasm of other sites of lip, oral cavity, and pharynx; Q32.1 Other congenital malformations of trachea
CPT/HCPCS: 70491; 71260; 82565; 84520; Q9967

== ENCOUNTER 2022-02-09 11:38 | Outpatient (CLI) | payer MEDICARE, OTHER, SELFPAY ==
--- NOTE | 2022-02-09 12:00 | CT_ITS ---
WS: [id number] CT CHEST TECHNIQUE: Contrast enhanced CT of the chest with coronal and sagittal reformatted images. CLINICAL INFORMATION: Screening for follow-up on laryngeal cancer COMPARISON: CT December 03, 2020 DLP: 629.[address] scans at [facility] use at least one of these dose optimization techniques: automated e xposure control; mA and/or kV adjustment per patient size (includes targeted exams where dose is matc hed to clinical indication); or iterative reconstruction. FINDINGS: Lungs are well aerated. No acute pulmonary infiltrates. No focal pneumonia or pleural fluid. 5 millim eter nodule LEFT lower lobe is unchanged. No new suspicious pulmonary parenchymal abnormalities. Calc ified granuloma RIGHT upper lobe. No other suspicious pulmonary parenchymal abnormalities. Normal srikanth iber thoracic aorta. Proximal main pulmonary arteries are normal. Prior thyroidectomy. Tracheostomy. No mediastinal or hilar lymphadenopathy. No axillary lymphadenopathy. Progressed cholelithiasis. Diffuse fatty infiltration liver. Normal portal vein and splenic vein. Spl enic granulomas. Moderate esophageal hiatal hernia. Mild diffuse circumferential thickening involving the distal esophagus. A few paraesophageal and retrocrural lymph nodes slightly more prominent today . . Normal caliber upper abdominal aorta. Celiac and SMA are patent. CT/CT chest w con* [id number] IMPRESSION: 1. 5 mm nodule LEFT lower lobe is unchanged. 2. No mediastinal or hilar lymphadenopathy. 3. Moderate esophageal hiatal hernia appears progressed compared to previous. 4. Mild diffuse circumferential thickening involving the distal esophagus also progressed compared to previous. This can be seen with esophagitis but indeter minant. This can be further evaluated with endoscopy. 5. A few slightly prominent periesophageal/retrocrural lymph nodes largest carla suring 7 mm more prominent compared to previous. Recommend 6 month follow-up. 6. Progressed cholelithiasis. 7. No other significant interval changes.
--- NOTE | 2022-02-09 12:30 | CT_ITS ---
WS: [id number] CT NECK TECHNIQUE: Contrast-enhanced CT of the neck with coronal and sagittal reformatted images. CLINICAL INFORMATION: Follow-up on laryngeal cancer COMPARISON: CT neck 12/03/20 DLP: 197.[address] scans at [facility] use at least one of these dose optimization techniques: automated e xposure control; mA and/or kV adjustment per patient size (includes targeted exams where dose is matc hed to clinical indication); or iterative reconstruction. FINDINGS: Prior postoperative changes total laryngectomy with flap reconstruction. Tracheostomy in place. Prior thyroidectomy. Normal submandibular glands. Parotid glands are normal. Normal parapharyngeal fat. No rmal posterior nasopharynx. Moderate circumferential mucosal thickening LEFT maxillary sinus. Small retention cyst or polyp RIGHT maxillary sinus measuring 10 mm. Mild mucosal thickening in the ethmoid air cells. Mastoid air cells well aerated. Middle ears appear well aerated. No cervical lymphadenopathy. Partially visualized int racranial contents appear normal. Lung apices appear well aerated. Moderate spondylitic changes cervical spine. Disc space narrowing worse at C4-C5 with endplate sclero sis. 0 CT/CT neck w con* [id number] IMPRESSION: 1. Prior postoperative changes laryngectomy and flap reconstruction. 2. Tracheostomy in place. 3. No evidence of recurrent or progressive disease. 4. Normal salivary glands. 5. No cervical lymphadenopathy.
[2022-02-09 12:35] LABS: Blood Urea Nitrogen 12 mg/dL (8-23)
[2022-02-09] MEDS: iohexol 350 mg/mL 100 mL Btl IV ×2 (12:45→12:46)
== END 2022-02-09 11:39 | disposition home or self-care (01) ==
LOC: RAD 11:39
PROVIDERS: PCP Family Medicine; Visit Provider Family Medicine
DX: C32.9 Malignant neoplasm of larynx, unspecified (principal); Z90.02 Acquired absence of larynx; Z98.890 Other specified postprocedural states; Z93.0 Tracheostomy status; R91.1 Solitary pulmonary nodule; K44.9 Diaphragmatic hernia without obstruction or gangrene; K80.20 Calculus of gallbladder without cholecystitis without obstruction
CPT/HCPCS: 70491; 71260; 82565; 84520

== ENCOUNTER 2023-02-23 06:50 | Outpatient (CLI) | payer MEDICARE, OTHER, SELFPAY ==
--- NOTE | 2023-02-23 07:00 | CT_ITS ---
WS: [id number] CT NECK TECHNIQUE: Contrast-enhanced CT of the neck with coronal and sagittal reformatted images. CLINICAL INFORMATION: f/u on throat cancer COMPARISON: CT 02/09/2022 DLP: 139.[address] scans at [facility] use at least one of these dose optimization techniques: automated e xposure control; mA and/or kV adjustment per patient size (includes targeted exams where dose is matc hed to clinical indication); or iterative reconstruction. FINDINGS: Prior postoperative changes total laryngectomy with flap reconstruction. Prior thyroidectomy. Normal submandibular glands. Parotid glands are normal. Normal parapharyngeal fat. Normal posterior nasophar ynx. No cervical lymphadenopathy. Tracheostomy has been removed with catheter extending along the tra cheostomy tract into the thoracic esophagus Mastoid air cells are well aerated. Partial visualized paranasal sinuses demonstrate mild polypoid mu cosal thickening LEFT maxillary sinus. Small retention cyst or polyp RIGHT maxillary sinus. Lung apic es are well aerated. Mild spondylitic changes cervical spine. Disc base narrowing with endplate sclerosis at C4-5 IMPRESSION: 1. Prior postoperative changes laryngectomy with surgical flap reconstruction. 2. Tracheostomy tract catheter extending into the thoracic esophagus. 3. No evidence of recurrent or progressive metastatic disease. 4. Normal salivary glands. 5. No cervical lymphadenopathy.
[2023-02-23 07:30] LABS: Blood Urea Nitrogen 15 mg/dL (8-23)
--- NOTE | 2023-02-23 07:30 | CT_ITS ---
WS: [id number] CT chest w con* [id number] HISTORY: f/u on throat cancer TECHNIQUE: Axial imaging performed through the thorax. Coronal and sagittal reformats are submitted. All CT scans at [facility] use at least one of these dose optimization techniques: automated exposure control; mA and/or kV adjustment per patient size (includes targeted exams where dose is mat ched to clinical indication); or iterative reconstruction. CONTRAST: Omnipaque 350; 100 mL IV. DLP: 301.53 mGy.cm COMPARISON: 02/09/2022 Lungs and central airway: Tracheostomy with catheter extending to the GE junction. The long catheter extension is new since the prior study. The tracheostomy has been removed. Previously described LEFT lower lobe pulmonary nodule is unchanged at 5 mm. No evidence for metastatic disease. No pneumonia. B enign granuloma RIGHT upper lobe. Pleura: Normal. No pleural effusion. Heart and pericardium: Normal size heart with no pericardial effusion. Mediastinum and hannah: Small mediastinal and hilar lymph nodes are similar to the most recent examinat ion. No new or enlarging lymph nodes. No progression of the paraesophageal lymph nodes. Vessels: Mild atherosclerosis aorta. No aneurysm. Normal pulmonary artery. Chest wall and lower neck: Postsurgical changes of a total laryngectomy are noted in the neck. This i s better described on the neck CT that was performed on 02/23/2023. Upper abdomen: Very mild distal esophageal wall thickening and small hiatal hernia. No progression. H epatic and splenic granulomata. Cholelithiasis without acute cholecystitis. No adrenal nodule. There is mixed contrast opacification of the portal vein and splenic vein due to arterial phase injection. Osseous structures: No destructive process. IMPRESSION: 1. No metastatic disease to the lungs. 2. No mediastinal or hilar lymphadenopathy. 3. Long-term stability 5 mm nodule LEFT lower lobe. 4. Tracheostomy has been removed since the prior study. There is now a long catheter through the trac heostomy defect extending through the esophagus to the GE junction. 5. Cholelithiasis without acute cholecystitis.
[2023-02-23] MEDS: iohexol 350 mg/mL 500 mL Btl (per mL) IV ×2 (07:44)
== END 2023-02-23 06:51 | disposition home or self-care (01) ==
PROVIDERS: PCP Family Medicine; Visit Provider Family Medicine
DX: C32.9 Malignant neoplasm of larynx, unspecified (principal); Z90.02 Acquired absence of larynx; R91.1 Solitary pulmonary nodule
CPT/HCPCS: 70491; 71260; 82565; 84520; Q9967

== ENCOUNTER → 2023-07-29 10:09 | Outpatient (BNVA) | payer MEDICARE, OTHER, SELFPAY | PROVIDERS: PCP Family Medicine; Visit Provider Family Medicine | DX: E03.9 Hypothyroidism, unspecified (principal) | CPT/HCPCS: 84443 ==

== ENCOUNTER → 2023-09-26 13:08 | Outpatient (BNVA) | payer MEDICARE, OTHER, SELFPAY | PROVIDERS: PCP Family Medicine; Visit Provider Family Medicine | DX: E03.9 Hypothyroidism, unspecified (principal); E11.9 Type 2 diabetes mellitus without complications | CPT/HCPCS: 84439; 84443 ==

== ENCOUNTER → 2024-03-28 08:18 | Outpatient (BNVA) | payer MEDICARE, OTHER, SELFPAY | PROVIDERS: PCP Family Medicine; Visit Provider Family Medicine | DX: C32.9 Malignant neoplasm of larynx, unspecified (principal); E11.9 Type 2 diabetes mellitus without complications; E03.9 Hypothyroidism, unspecified; R35.1 Nocturia | CPT/HCPCS: 80053; 84153; 84443; 85025 ==

== ENCOUNTER 2024-04-24 11:54 | Outpatient (CLI) | payer MEDICARE, OTHER, SELFPAY ==
--- NOTE | 2024-04-24 12:00 | CTR_ITS ---
PROCEDURE INFORMATION: Exam: CT Neck With Contrast Exam date and time: 04/24/2024 12:14 PM Age: 73 years old Clinical indication: Condition or disease; Cancer; Throat; Prior surgery; Surgery date: 6+ months; Surgery type: Trachea; Additional info: F/u on cancer TECHNIQUE: Imaging protocol: Computed tomography of the neck with contrast. Radiation optimization: All CT scans at this facility use at least one of these dose optimization techniques: automated exposure control; mA and/or kV adjustment per patient size (includes targeted exams where dose is matched to clinical indication); or iterative reconstruction. Contrast material: OMNI 350; Contrast volume: 75 ml; Contrast route: INTRAVENOUS (IV); COMPARISON: CT neck w con* [id number] 02/23/2023 7:37 AM RADIATION DOSE METRICS: Total DLP (mGy-cm): 145.81 FINDINGS: Salivary glands: Normal. Glands are normal in size. Pharynx: Unremarkable. No significant tonsillar enlargement. Prevertebral and retropharyngeal spaces: Unremarkable. Larynx: Unremarkable. Epiglottis is normal. Thyroid: Previous thyroidectomy. Trachea: Tracheostomy in place. Lungs: Unremarkable as visualized. Lymph nodes: Unremarkable. No lymphadenopathy. Bones/joints: Mild cervical spondylosis most prominently at C4-C5. Soft tissues: Unremarkable. No significant soft tissue swelling. Other findings: Stable postoperative appearance with laryngectomy and flap reconstruction. CT/CT neck w con* [id number] IMPRESSION: Stable postoperative appearance with laryngectomy and flap reconstruction.
[2024-04-24] MEDS: iohexol 350 mg/mL 500 mL Btl (per mL) IV ×2 (12:26)
--- NOTE | 2024-04-24 12:30 | CTR_ITS ---
PROCEDURE INFORMATION: Exam: CT Chest With Contrast; Diagnostic Exam date and time: 04/24/2024 12:10 PM Age: 73 years old Clinical indication: Condition or disease; Other: Throat cancer; Prior surgery; Surgery date: 6+ months; Surgery type: Trachea; Additional info: F/u on cancer TECHNIQUE: Imaging protocol: Diagnostic computed tomography of the chest with contrast. Radiation optimization: All CT scans at this facility use at least one of these dose optimization techniques: automated exposure control; mA and/or kV adjustment per patient size (includes targeted exams where dose is matched to clinical indication); or iterative reconstruction. Contrast material: OMNI 350; Contrast volume: 75 ml; Contrast route: INTRAVENOUS (IV); COMPARISON: CT chest w con* [id number] 02/23/2023 7:33 AM RADIATION DOSE METRICS: Total DLP (mGy-cm): 252.44 FINDINGS: Thyroid: No significant thyroid pathology. Trachea: Tracheostomy again seen. Interval removal of tube previously extending through the tracheostomy into the distal thoracic esophagus. Lungs: Bibasilar pulmonary scarring again noted. Calcified pulmonary granulomata are present. Stable lobulated nodule versus 2 small nodules in the left lower lobe on series 4, image 11 measuring 5 mm in greatest aggregate diameter. Stable 4 mm left upper lobe nodule series 4, image 19 stable 3 mm nodule left apical region series 4, image 11. Stable 5 mm nodule in the right middle lobe abutting the right cardiac margin. No new or enlarging pulmonary nodule evident. Pleural spaces: No pleural effusion. Heart: Unremarkable. No cardiomegaly. No pericardial effusion. Coronary arteries: No coronary artery calcification evident. Lymph nodes: Stable small lymph nodes abutting the GE junction. No enlarged thoracic nodes by criteria. Vasculature: No evidence of thoracic aortic aneurysm. Diaphragm: Small hiatal hernia. Gallbladder and biliary ducts: Cholelithiasis. Bones/joints: No bony metastasis evident. Mild degenerative change present in the spine. Stable mild loss of height upper thoracic vertebral bodies. Soft tissues: Unremarkable. CT/CT chest w con* [id number] IMPRESSION: No strong evidence of metastatic disease or significant interval change. Stable appearance of scattered small bilateral pulmonary nodules and other minor findings described above.
== END 2024-04-24 11:55 | disposition home or self-care (01) ==
LOC: RAD 11:56
PROVIDERS: PCP Family Medicine; Visit Provider Family Medicine
DX: C32.9 Malignant neoplasm of larynx, unspecified (principal); R91.8 Other nonspecific abnormal finding of lung field; Z98.890 Other specified postprocedural states; R93.89 Abnormal findings on diagnostic imaging of other specified body structures; J98.4 Other disorders of lung; K44.9 Diaphragmatic hernia without obstruction or gangrene; K80.20 Calculus of gallbladder without cholecystitis without obstruction
CPT/HCPCS: 70491; 71260

== ENCOUNTER → 2024-05-15 10:56 | Outpatient (BNVA) | payer MEDICARE, OTHER, SELFPAY | PROVIDERS: PCP Family Medicine; Visit Provider Family Medicine | DX: E03.9 Hypothyroidism, unspecified (principal); R97.20 Elevated prostate specific antigen [PSA] | CPT/HCPCS: 84443; G0103 ==

== ENCOUNTER 2025-03-08 08:30 | Outpatient (RCR) | payer MEDICARE, OTHER, SELFPAY | END 2025-03-24 23:59 | disposition home or self-care (01) | LOC: SPT 08:30 | PROVIDERS: Visit Provider Family Medicine | DX: C32.9 Malignant neoplasm of larynx, unspecified (principal) | CPT/HCPCS: 97110; 97140; 97162 ==

== ENCOUNTER 2025-03-25 05:00 | Outpatient (RCR) | payer MEDICARE, OTHER, SELFPAY | END 2025-04-24 23:59 | disposition home or self-care (01) | LOC: SPT 05:00 | PROVIDERS: Visit Provider Family Medicine | DX: C32.9 Malignant neoplasm of larynx, unspecified (principal) | CPT/HCPCS: 97110; 97140 ==